=== PATIENT | female | born 1990 | race African-American/Black ===

== ENCOUNTER 2021-12-11 17:28 | Emergency (ER) | payer BC, OTHER ==
[2021-12-11] MEDS ORDERED: Ondansetron ODT 4 MG TAB ONE (20:05)
== END 2021-12-11 20:34 | disposition home or self-care (01) ==
LOC: CSHERS 17:28
DX: R11.2 Nausea with vomiting, unspecified (principal); R19.7 Diarrhea, unspecified
CPT/HCPCS: 99283; Q0162